=== PATIENT | female | born 1980 | race Caucasian/White ===

== ENCOUNTER 2021-11-09 19:12 | Emergency (ER) | payer OTHER, SELFPAY ==
[2021-11-09] VITALS (8 sets, daily range): BP systolic 109–141; BP diastolic 47–79; PULSE 75–96; RESP 16; TEMP 36.3–36.5; O2SAT 97–100; BMI 19.8
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
[2021-11-09 21:09] LABS: Urine Pregnancy, HCG Qual. Negative (Negative)
== END 2021-11-09 23:15 | disposition home or self-care (01) ==
PROVIDERS: Emergency Provider Emergency Medicine
DX: M54.2 Cervicalgia (principal); M54.50 Low back pain, unspecified; M25.511 Pain in right shoulder; M25.551 Pain in right hip; R51.9 Headache, unspecified; J44.9 Chronic obstructive pulmonary disease, unspecified; V49.88XA Car occupant (driver) (passenger) injured in other specified transport accidents, initial encounter
CPT/HCPCS: 70450; 72125; 72128; 72131; 81025; 96372; 99285

== ENCOUNTER 2023-10-18 17:32 | Emergency (ER) | payer MEDICAID, SELFPAY ==
--- NOTE | 2023-10-18 17:50 | EXP.UTC ---
Discharge Plan Disposition Patient Disposition: Home, Self-Care Condition: Good Prescriptions Prescriptions: New naproxen 500 mg tablet 500 mg PO BID Qty: 20 0RF lidocaine [Lidoderm] 5 % adhesive patch,medicated 1 patch topical DAILY Qty: 30 0RF Rx Instructions: leave on most painful area for up to 12 hrs No Action buprenorphine-naloxone 1 EACH tablet, sublingual 1 unit SL DIRECTED Patient Comments: 2 TAB(S) SUBLINGUALLY ONCE A DAY 28 DAY(S) Referrals Follow up/Referrals: Provider,Referral, MD [Primary Care Provider] - See instructions Clinical Impressions Clinical Impression: Rib pain on left side Instructions Patient Instructions: DI for Rib Contusion Discharge ED [place] [facility] [place] General Stated complaint: WC 10/15/23 left rib injury Time Seen by Provider: 10/18/23 19:07 History of Present Illness Provider Complaint: Patient injured left ribs on 10/15. 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 Tote fell backwards, hitting her in the chest. [place] a pop. Continued to work. Has had soreness in her left rib area. Hurts to sneeze, cough. Onset (ago): day(s) (3) Location: chest and left Relieving factors: none Exacerbating factors: none Associated symptoms: denies other symptoms Treatments prior to arrival: none Related Data Home Medications Medication Instructions Recorded Confirmed buprenorphine 8 mg-naloxone 2 mg 1 unit sublingual DIRECTED 11/09/21 10/18/23 sublingual tablet opiate abuse Previous Rx's Medication Instructions Recorded lidocaine 5 % topical patch 1 patch topical DAILY #30 ea 10/18/23 (Lidoderm) naproxen 500 mg tablet 500 mg PO BID #20 tabs 10/18/23 Allergies Allergy/AdvReac Type Severity Reaction Status Date / Time No Known Allergies Allergy Verified 10/18/23 18:22 [facility] Disclaimer: The information contained in this section may have been updated after the patient was seen, as this information can be updated by other users. Social History Smoking Status: Current every day smoker alcohol intake: never current occupational status: employed Travel in the last 8 weeks: None ROS Obtained: Yes All systems reviewed & no additional complaints except as documented Respiratory Respiratory: Reports as per HPI Musculoskeletal Musculoskeletal: Reports as per HPI Physical Exam General General appearance: alert and in no apparent distress Head Head exam: atraumatic, normocephalic and normal inspection Eye Eye exam: Present normal appearance, PERRL and EOMI ENT ENT exam: Present normal exam, normal oropharynx, mucous membranes moist, TM's normal bilaterally and normal external ear exam Neck Neck exam: Present normal inspection, full ROM and trachea midline; Absent meningismus or lymphadenopathy Chest Chest inspection: Present normal inspection, symmetric chest wall rise and tenderness Respiratory Respiratory exam: Present normal lung sounds bilaterally; Absent respiratory distress Cardiovascular Cardiovascular exam: Present regular rate and normal rhythm; Absent JVD Extremities Exam Extremities exam: Present normal inspection, full ROM and normal capillary refill; Absent calf tenderness Neurological Exam Neurological exam: Present alert and oriented X3 Psychiatric Psychiatric exam: Present normal affect and normal mood Skin Skin exam: Present warm, dry, intact and normal color Lymphatic Lymphatic Findings: no adenopathy Medical Decision Making [place] Inquiry Pt receiving controlled substance: No Radiology Data #1: Image(s): Chest Image Reviewed: Yes I reviewed the patient's radiology results Preliminary Findings: Normal/NAD and No Fracture Seen FINDINGS: Lungs: The visualized lung draper are clear. Pleural spaces: No pneumothorax. No gross pleural effusion. Heart/Mediastinum: Visualized mediastinal structures are unremarkable. Bones/joints: No fractures. No blastic or lytic lesions. Glenohumeral alignment and a.c. joint alignment are normal. Mild leftward convexity lower thoracic scoliotic curvature. Intraperitoneal space: Visualized upper abdominal structures are unremarkable. IMPRESSION: No rib fractures or pneumothorax are identified.
--- NOTE | 2023-10-18 18:03 | XR_ITS ---
PROCEDURE INFORMATION: Exam: XR Left Ribs with PA Chest Exam date and time: 10/18/2023 6:02 PM Age: 42 years old Clinical indication: Chest wall pain; Bilateral; Additional info: Hurt rib w/c TECHNIQUE: Imaging protocol: Radiologic exam of the left ribs with PA chest. Views: 3 views COMPARISON: CT THORACIC SPINE WO CON 11/09/2021 9:13 PM FINDINGS: Lungs: The visualized lung draper are clear. Pleural spaces: No pneumothorax. No gross pleural effusion. Heart/Mediastinum: Visualized mediastinal structures are unremarkable. Bones/joints: No fractures. No blastic or lytic lesions. Glenohumeral alignment and a.c. joint alignment are normal. Mild leftward convexity lower thoracic scoliotic curvature. Intraperitoneal space: Visualized upper abdominal structures are unremarkable. IMPRESSION: No rib fractures or pneumothorax are identified.
[2023-10-18 18:05] VITALS: BP 136/54; PULSE 85; RESP 18; TEMP 36.7; O2SAT 99; BMI 24.8
[2023-10-18 19:44] VITALS: BP 136/54; PULSE 85; RESP 18; TEMP 36.7; O2SAT 99
== END 2023-10-18 19:44 | disposition home or self-care (01) ==
PROVIDERS: Emergency Provider Physician Assistant
DX: R07.81 Pleurodynia (principal); W20.8XXA Other cause of strike by thrown, projected or falling object, initial encounter; F17.210 Nicotine dependence, cigarettes, uncomplicated
CPT/HCPCS: 71101; 99204; 99212; G0463